=== PATIENT | female | born 1950 | race Caucasian/White ===

== ENCOUNTER → 2018-03-23 | Outpatient (CLI) | payer OTHER, MEDICAID ==
[2018-03-23 10:38] LABS: ABSOLUTE BASOPHILS 0.1 thou/uL (0.0-0.2); ABSOLUTE EOSINOPHILS 0.3 thou/uL (0.0-0.7); ABSOLUTE LYMPHOCYTES 3.4 thou/uL (0.8-5.3); ABSOLUTE MONOCYTES 0.8 thou/uL (0.0-1.2); ABSOLUTE NEUTROPHILS 6.4 thou/uL (1.6-8.1); BASOPHILS 0.8 %; EOSINOPHILS 2.5 %; HEMATOCRIT 47.6 % (37.0-47.0); HEMOGLOBIN 16.7 gm/dL (12.0-15.0); LYMPHOCYTES 31.2 %; MCH 32.4 pg (26.0-34.0); MCV 92.4 fL (80.0-100.0); MONOCYTES 7.1 %; MPV 8.7 fl. (7.2-11.1); NUCLEATED RBCS 0 /100WBC; PLATELET COUNT* 210 thou/uL (150-400); POLYS 58.4 %; RBC 5.15 mil/uL (4.20-5.00); RDW-CV 13.5 % (10.5-14.5)
[2018-03-23 10:45] LABS: CALCIUM 10.5 mg/dL (8.5-10.1); POTASSIUM 3.2 mmol/L (3.5-5.1)
[2018-03-23 10:53] LABS: ALBUMIN 3.9 g/dL (3.4-5.0); TOTAL BILIRUBIN 0.5 mg/dL (<0.1-1.0); TOTAL PROTEIN 8.1 g/dL (6.4-8.2)
== END ==
LOC: M.RAD 09:43
PROVIDERS: Internal Medicine
DX: M79.10 Myalgia, unspecified site (principal); R53.83 Other fatigue; R05 Cough

== ENCOUNTER → 2018-07-30 | Outpatient (CLI) | payer OTHER, MEDICAID | LOC: M.RAD 10:11 | DX: M25.552 Pain in left hip (principal) ==

== ENCOUNTER → 2018-08-19 | Outpatient (CLI) | payer OTHER, MEDICAID | LOC: M.RAD 08:53 | DX: M16.12 Unilateral primary osteoarthritis, left hip (principal); M86.8X8 Other osteomyelitis, other site ==